=== PATIENT | male | born 1990 | race African-American/Black ===

== ENCOUNTER 2018-10-21 16:45 | Emergency (ER) | payer SELFPAY ==
[~2018-10-21] VITALS: Ht 175.3 cm; Wt 72.8 kg
[2018-10-21 16:45] VITALS: BP 133/81
[2018-10-21] MEDS ORDERED: AZITHROMYCIN 250 MG TAB PO ONE (17:15)
[2018-10-21] MEDS ORDERED: cefTRIAXone SOD 250 MG VIAL (J0696) IM ONE (17:15)
[2018-10-21] MEDS ORDERED: LIDOCAINE 1% SDV 5 ML VIAL DILUENT ONE (17:15)
[2018-10-21 18:47] LABS: CHLAMYDIA DNA AMPLIFICATION NEGATIVE (NEGATIVE); GC DNA AMPLIFICATION NEGATIVE (NEGATIVE)
== END 2018-10-21 17:42 | disposition home or self-care (01) ==
LOC: M ED 16:45
DX: N50.89 Other specified disorders of the male genital organs (principal); R30.0 Dysuria; F17.210 Nicotine dependence, cigarettes, uncomplicated
CPT/HCPCS: 87491; 87591; 96372; 99283; J0696